=== PATIENT | male | born 1970 | race Caucasian/White ===

== ENCOUNTER → 2024-10-19 | Outpatient (CLI) | payer BC ==
--- NOTE | 2024-10-22 22:57 | PE ---
EXAMINATION TYPE: PET CT fusion skull to thigh DATE OF EXAM: 10/19/2024 COMPARISON: Chest x-ray 10/11/2024 Prior PET/CT: None at this location CLINICAL INDICATION: Male, 53 years old with history of R91.8 LUNG NODULE, TECHNIQUE: Following the intravenous administration of 9.93 mCi of F-18 FDG, whole body images are p erformed from the skull base to the midthigh. Images are reviewed on the computer in the coronal, ax ial, and sagittal planes. Reconstructed rotating images are created on independent workstation and r eviewed on the computer. A localization and attenuation correction CT is performed in conjunction w ith the PET scan. DLP: 889.75 mGycm SCAN: Initial Blood glucose: 104 mg/dL Average Mediastinum SUV: 2.03 Average Liver SUV: 2.45 FINDINGS: NECK: There is some uptake within the anterolateral right maxilla likely periodontal disease. Image 26, SUV 5.2 THORAX: There is a large cavitary lesion posterior lateral left midlung, example image 95, estimated 10.49 additional workup recommended. There is some mild uptake within a soft tissue density posterior medial right Lung. Image 93, SUV 3.9 1. ABDOMEN: No abnormal uptake PELVIS: No abnormal uptake OSSEOUS STRUCTURES: There is diffuse uptake within ribs and sternum. Metastasis not entirely excluded . Focal uptake is not clearly evident. There is some uptake within the midthoracic spine, example seema ge 110, SUV 5.3 which could reflect metastatic disease to osseous structures. Scattered punctate area s of uptake within the sacrum and iliac wings may be present LOCALIZATION CT: Small left pleural effusion COMPARISON: Chest finding correlates with PET scan IMPRESSION: 1. Uptake within the left posterior lateral lung mass suspicious for primary neoplasm metastasis coul d be considered. 2. There is additional uptake within the medial right posterior lung. 3. Scattered within multiple osseous structures discussed above suspicious for metastatic disease. C onsider correlation with bone scan for confirmation of bone metastasis. [facility], Workstation: [facility], 10/22/2024 10:55 PM
== END | disposition home or self-care (01) ==
LOC: RADPETMAIN 13:23
PROVIDERS: ATTEND Internal Medicine Critical Care Medicine
DX: R91.8 Other nonspecific abnormal finding of lung field (principal); C79.51 Secondary malignant neoplasm of bone; J90 Pleural effusion, not elsewhere classified
CPT/HCPCS: 78815; A9552

== ENCOUNTER → 2024-11-10 | Outpatient (CLI) | payer BC ==
[2024-11-10 20:16] LABS: Basophils # (A) 0.11 X 10*3/uL (0.00-0.10); Basophils % (A) 0.8 %; Eosinophils % (A) 0.7 %; HCT 47.7 % (39.6-50.0); HGB 16.1 g/dL (13.0-17.0); Lymphocytes # (A) 1.69 X 10*3/uL (0.90-5.00); Lymphocytes % (A) 11.6 %; MCHC 33.8 g/dL (32.0-37.0); MCV 83.1 FL (80.0-97.0); Mean Platelet Volume 11.3 FL (9.5-12.2); Monocytes # (A) 1.09 X 10*3/uL (0.20-1.00); Monocytes % (A) 7.5 %; NRBC Per 100 WBC 0 X 10*3/uL (0.00-0.01); Neutrophils # (A) 11.52 X 10*3/uL (1.80-7.70); Neutrophils % (A) 79.1 %; Platelet Count 231 X 10*3/uL (140-440); RBC 5.74 X 10*6/uL (4.40-5.60); RDW 13.4 % (11.5-14.5); WBC 14.56 X 10*3/uL (4.50-10.00)
[2024-11-10 20:51] LABS: Erythrocyte Sedimentation Rate 3 mm/Hr (0-20)
[2024-11-11 03:11] LABS: ALT 26 U/L (10-49); AST 30 U/L (14-35); Albumin 4.6 g/dL (3.8-4.9); Albumin/Globulin Ratio 1.77 Ratio (1.60-3.17); Alkaline Phosphatase 86 U/L (41-126); Blood Urea Nitrogen 9.2 mg/dL (9.0-27.0); Calcium 9.8 mg/dL (8.7-10.3); Chloride 97 mmol/L (96-109); Globulin 2.6 g/dL (1.6-3.3); Glucose 98 mg/dL (70-110); Potassium 3.3 mmol/L (3.5-5.5); Sodium 138 mmol/L (135-145); Total Bilirubin 0.7 mg/dL (0.3-1.2); Total Protein 7.2 g/dL (6.2-8.2)
== END | disposition home or self-care (01) ==
LOC: LABWHC1 15:54
PROVIDERS: ATTEND Internal Medicine Critical Care Medicine
DX: R91.8 Other nonspecific abnormal finding of lung field (principal)
CPT/HCPCS: 36415; 80053; 85025; 85652

== ENCOUNTER → 2024-11-14 | Outpatient (CLI) | payer BC ==
--- NOTE | 2024-11-14 11:52 | NM ---
EXAMINATION TYPE: NM bone scan whole body DATE OF EXAM: 11/14/2024 COMPARISON: Prior PET/CT October 19, 2024 CLINICAL INDICATION: Male, 53 years old with history of R91.8 abnormal findings lung; left lung cance r. Delayed whole-body scanning was performed following the injection of 22.5 mCi Tc 99m MDP. Images acq uired 3 hours post injection. FINDINGS: There is no suspicious increased radiotracer uptake to suggest metastatic disease to the bone or othe r abnormality. Some urine extravasation in the left medial groin region is felt present. Degenerative changes bilateral knees is noted. IMPRESSION: No scintigraphic evidence of metastatic disease to the bone. [facility], , 11/14/2024 11:50 AM
== END | disposition home or self-care (01) ==
LOC: RADNMMAIN 07:32
PROVIDERS: ATTEND Internal Medicine Critical Care Medicine
DX: C34.92 Malignant neoplasm of unspecified part of left bronchus or lung (principal); R91.8 Other nonspecific abnormal finding of lung field
CPT/HCPCS: 78306; A9503

== ENCOUNTER → 2024-12-04 | Outpatient (CLI) | payer BC ==
--- NOTE | 2024-12-04 16:20 | CT ---
EXAMINATION TYPE: CT chest w con DATE OF EXAM: 12/04/2024 4:11 PM COMPARISON: 11/10/2024 chest x-ray , PET/CT 10/19/2024 CLINICAL INDICATION: Male, 54 years old with history of R91.8 OTHER NONSPECIFIC ABNORMAL FINDING OF L TIANA F, Follow up for lung mass found on prior XR. TECHNIQUE: Axial images were obtained at 5 mm thick sections. Reconstructed images are reviewed on [employer] computer in the coronal plane. Contrast used:100 ml mL of Isovue 300 with IV Contrast, (none if empty) Oral contrast used: (none if empty) CT DLP: 496.1 mGycm, Automated exposure control for dose reduction was used. FINDINGS: There is a 0.7 cm hypodensity within the prominent left lobe thyroid. Right lobe thyroid is slightly less prominent. There is a 1.3 cm thickening along the major fissure posterior lateral peripheral left lung. Series 4 image 27. There appears to be some atelectatic type changes within the lateral right lung base and right middle lobe. No enlarged mediastinal or hilar adenopathy is evident. The ascending aorta diameter at the level o f the main pulmonary artery is 3.6 cm. The main pulmonary artery diameter at the bifurcation is 2.9 cm. Coronary artery calcification is present. Limited CT sections are obtained through the upper abdomen. There is mild diffuse fatty infiltration of the liver. Minimal thickening of the right adrenal gland is present measuring 1.7 cm. IMPRESSION: 1. Right lower lung base in the middle lobe scattered densities likely subsegmental atelectasis. 2. Density along the major fissure along the posterior lateral left lung base. This area correlates w ith the PET CT but is significantly smaller. Follow-up with PET/CT. [facility], , 12/04/2024 4:18 PM
== END | disposition home or self-care (01) ==
LOC: RADCTMAIN 15:15
PROVIDERS: ATTEND Internal Medicine Critical Care Medicine
DX: R91.8 Other nonspecific abnormal finding of lung field (principal); J98.4 Other disorders of lung
CPT/HCPCS: 71260; Q9967

== ENCOUNTER → 2025-03-23 | Outpatient (CLI) | payer BC ==
--- NOTE | 2025-03-25 22:53 | CT ---
EXAMINATION TYPE: CT chest w con DATE OF EXAM: 03/23/2025 4:07 PM COMPARISON: CT 12/04/[address] 10/19/2024 . CLINICAL INDICATION: Male, 54 years old with history of R91.8 ABNORMAL LUNG FIELD; [facility], F/u for abnor mal lung field TECHNIQUE: Multiple axial images were obtained through the chest. Sagittal and coronal reformats were created for review. MIP was performed on a separate workstation. Contrast used:100 ml mL of Isovue [address] DLP: 489.2 mGycm, Automated exposure control for dose reduction was used. FINDINGS: Heart is borderline enlarged without pericardial effusion. Extensive three-vessel coronary artery darin cifications are present and there are marker for coronary artery disease. Aorta normal caliber with conventional arch vessel branching anatomy. Some strandy anterior mediastinal density which remains unchanged, probably residual thymic tissue. No thoracic lymphadenopathy by CT size criteria. Minimal emphysematous change suggested. Mild bronchial wall thickening. Some minimal groundglass or m osaic attenuation of the lungs. Findings suggest air-trapping and small airways disease. Some minimal residual scarlike subpleural density remains at the periphery of the left lower lobe bairon suring 5 mm x 3 cm, previously approximately 5.5 cm back on 10/19/2024. Patchy subpleural opacity posteromedial right mid lung continues to show improvement with only minima l residual groundglass here now, axial image 26. Previous right upper lobe patchy opacity has resolved. No new consolidation or pleural effusion. Visualized upper abdomen shows low attenuation of the hepatic parenchyma suggesting fatty infiltratio n. Right adrenal nodularity measuring 1.3 cm versus 1.6 cm, previously. Bones: No osseous destructive process. IMPRESSION: 1. COPD with minimal emphysema. 2. Continued improvement in the bilateral opacities. Only minimal residual subpleural density now rem ains at both midlung levels, either minimal residual infiltrate and/or interval development of pleura l-parenchymal scarring. Consider 1 year follow-up to reassess. Findings suggest improvement in prior infectious/inflammatory etiology. 3. Extensive coronary artery calcifications. 4. Some underlying right adrenal nodularity measuring 1.3 cm, similar to less pronounced compared to prior exam. This can also be reassessed at the one-year follow-up. [facility], , 03/25/2025 10:51 PM
== END | disposition home or self-care (01) ==
LOC: RADCTMAIN 15:33
PROVIDERS: ATTEND Internal Medicine Critical Care Medicine
DX: R91.8 Other nonspecific abnormal finding of lung field (principal); J44.9 Chronic obstructive pulmonary disease, unspecified; J43.9 Emphysema, unspecified; I25.10 Atherosclerotic heart disease of native coronary artery without angina pectoris
CPT/HCPCS: 71260; Q9967